=== PATIENT | female | born 1940 | race Two or more races ===

== ENCOUNTER 2022-08-09 06:46 | Day surgery (SDC) | payer OTHER ==
[~2022-08-09] VITALS: Ht 149.9 cm; Wt 93.9 kg
[~2022-08-09 06:46] MED LIST: ACET-1156 PO; CHOL100079 OR; GLIP-110 PO; LACTCAP35 OR; LOSA-39 PO; LOVA20TA4 PO; METO25TA93 PO; OMEP20TA PO; SITA100T7 PO; TRIA50TA2 PO
[2022-08-09] MEDS ORDERED: IODIXANOL 320MG/ML 100ML BTL IV ONE (07:38)
[2022-08-09] MEDS ORDERED: IOHEXOL 350 MG/ML 100ML IJ ONE (07:38)
[2022-08-09] MEDS ORDERED: LIDOCAINE 2%HCL (LOCAL ANESTH.) INJ 20ML MDV ONE (07:38)
[2022-08-09] MEDS ORDERED: ANGIOMAX 250 MG VIAL IV ONE (07:45)
[2022-08-09] MEDS ORDERED: SODIUM CHL 0.9% 0 ML ONE (07:46)
[2022-08-09] MEDS ORDERED: fentaNYL CITRATE 100 MCG/2 ML VL ONE (07:46)
[2022-08-09] MEDS ORDERED: HEPARIN SODIUM (PORCINE) 5000 UNITS/ML 1ML VIAL ONE (07:46)
[2022-08-09] MEDS ORDERED: VERAPAMIL 2.5MG/ML INJ 2ML VIAL IV ONE (07:46)
[2022-08-09] MEDS ORDERED: MIDAZOLAM HCL 2MG/2ML 2ml VIAL (1mg/ml) ONE (07:46)
[2022-08-09 08:35] VITALS: BP 140/65
[2022-08-09 08:50] VITALS: BP 131/57
[2022-08-09 09:05] VITALS: BP 129/61
[2022-08-09 09:20] VITALS: BP 127/63
[2022-08-09 09:50] VITALS: BP 146/54
[2022-08-09 10:35] VITALS: BP 139/37
== END 2022-08-09 10:51 | disposition home or self-care (01) ==
LOC: CATH 06:46 → EDSTATUS 09:41 → CATH 10:51
PROVIDERS: ATTEND Internal Medicine Cardiovascular Disease
DX: I25.10 Atherosclerotic heart disease of native coronary artery without angina pectoris (principal); I35.0 Nonrheumatic aortic (valve) stenosis; I10 Essential (primary) hypertension; E78.5 Hyperlipidemia, unspecified; E11.9 Type 2 diabetes mellitus without complications; Z88.8 Allergy status to other drugs, medicaments and biological substances; Z91.040 Latex allergy status; Z79.899 Other long term (current) drug therapy; Z79.84 Long term (current) use of oral hypoglycemic drugs; Z20.822 Contact with and (suspected) exposure to COVID-19
CPT/HCPCS: 93458; C1769; C1887; C1894; C9803; J1644; J2250; J3010; Q9967; U0003; 99152